=== PATIENT | male | born 1975 | race Two or more races ===

== ENCOUNTER 2017-12-01 16:58 | Emergency (ER) | payer MEDICAID, OTHER ==
[~2017-12-01] VITALS: Ht 175.3 cm; Wt 81.6 kg
[2017-12-01] MEDS ORDERED: BUSPAR10 MG ORAL (17:17)
[2017-12-01] MEDS ORDERED: GABAPENTIN600 MG ORAL (17:17)
[2017-12-01] MEDS ORDERED: Tylenol #3 tab (300mg/30mg) PO ONE (17:30)
[2017-12-01] MEDS ORDERED: NORCO 5-325 TA1 EACH ORAL (18:14)
[2017-12-01 18:29] VITALS: BP 130/80
--- NOTE | 2017-12-01 18:32 | Emergency Room Report ---
History of Present Illness General Chief Complaint: Lower Extremity Injury Source: Patient Present Illness HPI 42-year-old male presents ED for evaluation. Patient states he jammed his toe 2 days ago and has had persistent pain since. Notes bruising to the right big toe. Pain is throbbing, 7 out of 10, nonradiating. Notes difficulty bearing weight on the toe. Denies any other injuries. No other aggravating relieving factors. Denies any other associated symptoms Allergies: Coded Allergies: No Known Allergies (Verified , 09/12/11) Patient History Past Medical History: none Past Surgical History: none Pertinent Family History: none Social History: Denies: smoking, alcohol use, drug use Immunizations: UTD Reviewed Nursing Documentation: PMH: Agreed; PSxH: Agreed Nursing Documentation-PMH Past Medical History: No Stated History Review of Systems All Other Systems: negative except mentioned in HPI Physical Exam Vital Signs Date Time Temp Pulse Resp B/P (MAP) Pulse Ox O2 Delivery O2 Flow Rate FiO2 12/01/17 17:13 98.7 93 17 130/80 95 Room Air 98.8 Sp02 EP Interpretation: reviewed, normal General Appearance: no apparent distress, alert, GCS 15, non-toxic Head: normocephalic Eyes: bilateral eye normal inspection, bilateral eye PERRL ENT: normal ENT inspection Neck: normal inspection Respiratory: normal inspection Cardiovascular #1: normal inspection Gastrointestinal: normal inspection Rectal: deferred Genitourinary: no CVA tenderness Musculoskeletal: swelling, tender - R big toe Neurologic: alert, oriented x3, responsive, motor strength/tone normal, sensory intact, speech normal Psychiatric: judgement/insight normal, memory normal, mood/affect normal, no suicidal/homicidal ideation Skin: other - bruisign R big toe Lymphatic: normal inspection Procedures Splinting Splinting : Consent: Verbal Pre-Made Type: cast shoe Pre-Proc Neuro Vasc Exam: normal Post-Proc Neuro Vasc Exam: normal Patient Tolerated: Well Complications: None Medical Decision Making Diagnostic Impression: Primary Impression: Toe fracture Qualified Codes: S92.414A - Nondisplaced fracture of proximal phalanx of right great toe, initial encounter for closed fracture ER Course Hospital Course 42-year-old M presents to ED complaining of R big toe pain/bruising Differential diagnoses include: Fracture, dislocation, sprain, contusion Clinical course Patient placed on stretcher. After initial history and physical, I ordered pain medications and Xrays of R foot Xrays prelim read shows avulsion fx to base of proximal phalanx big toe. Discussed findings with patient. Placed in cast shoe given crutches. Close follow-up with PMD Diagnosis - toe fracture Stable and discharged to home with prescription for [place]. apply ice, keep elevated. weight bear as tolerated. Followup with PMD. Return to ED if symptoms recur or worsen Other X-Ray Diagnostic Results Other X-Ray Diagnostic Results : X-Ray ordered: R foot # of Views/Limited Vs Complete: 3 View Indication: Pain EP Interpretation: Yes Interpretation: no dislocation, no soft tissue swelling, other - avulsion fx base of proximal phalanx R toe Impression: Other - fx Electronically Signed by: Electronically signed by Rohit Padilla MD Last Vital Signs Date Time Temp Pulse Resp B/P (MAP) Pulse Ox O2 Delivery O2 Flow Rate FiO2 12/01/17 18:01 98.7 12/01/17 17:13 93 17 130/80 95 Room Air Status: improved Disposition: HOME, SELF-CARE Condition: Stable Scripts Hydrocodone Bit/Acetaminophen 5-325* (NORCO 5-325*) 1 Each Tablet 1 TAB ORAL Q6H PRN for For Pain, #10 TAB 0 Refills Prov: Rohit Padilla MD 12/01/17 Patient Instructions: Toe Fracture With [facility] Rohit Padilla MD December 01, 2017 18:32
--- NOTE | 2017-12-02 13:53 | Diagnostic Imaging Report ---
Indication: Pain Technique: XRAY Foot Complete R Comparison: None Findings: Minimally displaced fracture of the base of the first proximal phalanx with extension to the articular surface. No additional fracture identified. Anatomic alignment maintained. No radio opaque foreign body seen. Impression: Fracture of the base of the first proximal phalanx. This corresponds with the preliminary interpretation of the treating ER clinician, as documented in the electronic medical record.
== END 2017-12-01 18:40 | disposition home or self-care (01) ==
LOC: EMR 17:39
DX: S92.411A Displaced fracture of proximal phalanx of right great toe, initial encounter for closed fracture (principal); X58.XXXA Exposure to other specified factors, initial encounter; Y92.9 Unspecified place or not applicable
CPT/HCPCS: 99283